=== PATIENT | male | born 1940 | race Hispanic/Latino ===

== ENCOUNTER 2018-08-03 09:27 | Outpatient (CLI) | payer MEDICARE ==
--- NOTE | 2018-08-03 16:22 | PET Report ---
PET/CT:08/03/18 09:27:00 CLINICAL: Solitary pulmonary nodule. RADIOPHARMACEUTICAL: 14.637mCi F18-FDG. COMPARISON: None. TECHNIQUE- Following intravenous injection of F-18 FDG and an approximately 60 minute uptake period, CT and PET images from the mid skull to the upper thighs were acquired with the patient in the fasted state. No contrast was administered. The CT protocol used for this PET CT study is designed for attenuation correction and anatomic localization of PET abnormalities. This technical support intern CT is not desired to produce and cannot replace, [id number] diagnostic CT scans with specific imaging protocols for different body parts and indications. Plasma glucose at the time of this test: 194g/dl. The standardized uptake values (SUV) are normalized to patient body weight and indicate the highest activity concentration (SUV max) in a given disease site. FINDINGS: Brain--Physiologic FDG uptake in the visualized regions of the brain. Neck--Physiologic FDG uptake in mucosal structures. No mass or lymphadenopathy. Chest--Physiologic FDG uptake in mediastinal blood pool and myocardium. Lungs--No abnormal uptake. A 1.5 x 1.2 cm noncalcified non-FDG avid lingular lung nodule. It is contiguous to the lateral pleura and to the fissure. It measures 42 Hounsfield units in density with SUV 0.8. Pleura/pericardium--No abnormal uptake. Thoracic nodes--No abnormal uptake. Hepatobiliary--No abnormal uptake. Liver background SUV mean, as a reference for comparing FDG studies, is 3.7 . No liver mass. Spleen--No abnormal uptake. Pancreas--No abnormal uptake. Adrenal Glands--No abnormal uptake. Kidneys/Ureters/Bladder--No abnormal uptake. A single right kidney measures 12.4 cm in length. No surgical clips or sutures on the left side. Abdominopelvic Nodes--No abnormal uptake. Bowel/Peritoneum/Mesentery--No abnormal uptake. Pelvic organs--No abnormal uptake. Bones/Soft Tissues--No abnormal uptake and no suspicious bone lesion. IMPRESSION- 1. A non-FDG avid noncalcified 1.5 cm left lung nodule. It remains suspicious for for either a primary or secondary malignancy despite the relative absence of FDG uptake. A CT-guided percutaneous needle biopsy would probably be feasible. 2. No evidence of other metastatic disease.
== END 2018-08-03 09:28 | disposition home or self-care (01) ==
LOC: PET 09:27
PROVIDERS: ATTEND Internal Medicine
DX: R91.1 Solitary pulmonary nodule (principal); I11.0 Hypertensive heart disease with heart failure; I50.9 Heart failure, unspecified; E78.00 Pure hypercholesterolemia, unspecified
CPT/HCPCS: 78815; 82962; A9552